=== PATIENT | female | born 1955 | race Caucasian/White ===

== ENCOUNTER 2016-10-20 00:50 | Inpatient (IN) | payer MEDICAID ==
--- NOTE | 2016-10-20 00:59 | EDPHY ---
H & P Stated Complaint: N,V ATE SAGEBRUSH, COFFEE ENEMA, ECT TO TREAT LYMES HPI/ROS: HPI CHIEF COMPLAINT: Nausea, vomiting after eating sagebrush HISTORY OF PRESENT ILLNESS: This patient very pleasant 60-year-old female, she presents emergency room with nausea and vomiting x2 episodes nonbilious nonbloody, she states around 9:00 p.m. yesterday she ate sagebrush while on a hike. She thought it was similar to stella. She states she Boiled it, rather large amount of it. Since then she has had onset of nausea. Around 2:00 p.m. today she developed vomiting. 2 different episodes. She has not had any significant pain denies any fever. Denies chest pain or shortness of breath. She does tell me she feels nausea. Since then she tells me she did 2 coffee enemas, drank activated charcoal and a liver rescue homeopathic medication as she read online that stage brushing can cause her liver toxicity. She denies any abdominal pain. She states since taking about other. She has had ongoing nausea. 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 Exam Constitutional appears well nontoxic, triage nursing summary reviewed, vital signs reviewed, awake/alert. Eyes normal conjunctivae and sclera, EOMI, PERRLA. HENT normal inspection, atraumatic, moist mucus membranes, no epistaxis, neck supple/ no meningismus, no raccoon eyes. Respiratory clear to auscultation bilaterally, normal breath sounds, no respiratory distress, no wheezing. Cardiovascular rate normal, regular rhythm, no murmur, no edema, distal pulses normal. Gastrointestinal soft, non-tender, no rebound, no guarding, normal bowel sounds, no distension, no pulsatile mass. Genitourinary no CVA tenderness. Musculoskeletal no midline vertebral tenderness, full range of motion, no calf swelling, no tenderness of extremities, no meningismus, good pulses, neurovascularly intact. Skin pink, warm, & dry, no rash, skin atraumatic. Neurologic awake, alert and oriented x 3, AAOx3, moves all 4 extremities equally, motor intact, sensory intact, CN II-XII intact, normal cerebellar, normal vision, normal speech. Psychiatric normal mood/affect. Heme/Lymph/Immune no lymphadenopathy. Differential Diagnosis: Includes but is not limited to in a particular order, dehydration, electrolyte disturbance, acute nausea vomiting from sagebrush ingestion. Medical Decision Making: Plan for this patient IV fluid bolus 1 L normal saline , IV Zofran for nausea, check liver enzymes and basic blood work. Re-evaluate. Re-evaluation: 0224AM: Patient is resting comfortably at this time. Is noted sodium is low critically 118. Due to his low sodium she will need to be admitted for further evaluation of hyponatremia. I have consult the hospitalist. Dr. Barrientos who agrees to admit. Updated patient. She agrees for admission. Source: Patient - Personal History Current Tetanus/Diphtheria Vaccine: Unsure Current Tetanus Diphtheria and Acellular Pertussis (TDAP): Unsure - Medical/Surgical History Hx Asthma: No Hx Chronic Respiratory Disease: No Hx Diabetes: No Hx Cardiac Disease: No Hx Renal Disease: No Hx Cirrhosis: No Hx Alcoholism: No Hx HIV/AIDS: No Hx Splenectomy or Spleen Trauma: No Other PMH: LYMES , OSTEO, PARATHYROID REMOVED - Social History Smoking Status: Light smoker Constitutional: Initial Vital Signs Temperature (C) 36.9 C 10/20/16 00:53 Heart Rate 79 10/20/16 00:53 Respiratory Rate 18 10/20/16 00:53 Blood Pressure 170/68 H 10/20/16 00:53 O2 Sat (%) 96 10/20/16 00:53 O2 Delivery Mode Room Air Allergies/Adverse Reactions: Sulfa (Sulfonamide Antibiotics) Allergy (Verified 10/20/16 00:57) Home Medications: Medication Instructions Recorded NK [No Known Home Meds] 10/20/16 Medical Decision Making - Data Points Laboratory Results: Laboratory Results 10/20/16 01:20 10/20/16 01:20 10/20/16 10/20/16 01:20 01:20 WBC 13.35 10^3/uL H 10^3/uL (3.80-9.50) RBC 4.02 10^6/uL L 10^6/uL (4.18-5.33) Hgb 12.5 g/dL L g/dL (12.6-16.3) Hct 34.8 % L % (38.0-47.0) MCV 86.6 fL fL (81.5-99.8) MCH 31.1 pg pg (27.9-34.1) MCHC 35.9 g/dL g/dL (32.4-36.7) RDW 11.3 % L % (11.5-15.2) Plt Count 255 10^3/uL 10^3/uL (150-400) MPV 9.7 fL fL (8.7-11.7) Neut % (Auto) 78.6 % H % (39.3-74.2) Lymph % (Auto) 14.2 % L % (15.0-45.0) [place] % (Auto) 6.7 % % (4.5-13.0) Eos % (Auto) 0.1 % L % (0.6-7.6) Baso % (Auto) 0.2 % L % (0.3-1.7) Nucleat RBC Rel Count 0.0 % % (0.0-0.2) Absolute Neuts (auto) 10.49 10^3/uL H 10^3/uL (1.70-6.50) Absolute Lymphs (auto) 1.89 10^3/uL 10^3/uL (1.00-3.00) Absolute Monos (auto) 0.89 10^3/uL H 10^3/uL (0.30-0.80) Absolute Eos (auto) 0.02 10^3/uL L 10^3/uL (0.03-0.40) Absolute Basos (auto) 0.03 10^3/uL 10^3/uL (0.02-0.10) Absolute Nucleated RBC 0.00 10^3/uL 10^3/uL (0-0.01) Immature Gran % 0.2 % % (0.0-1.1) Immature Gran # 0.03 10^3/uL 10^3/uL (0.00-0.10) Sodium 118 mEq/L L* mEq/L (134-144) Potassium 3.4 mEq/L L mEq/L (3.5-5.2) Chloride 89 mEq/L L mEq/L (97-110) Carbon Dioxide 19 mEq/l L mEq/l (22-31) Anion Gap 10 mEq/L mEq/L (8-16) BUN 12 mg/dL mg/dL (7-23) Creatinine 0.5 mg/dL L mg/dL (0.6-1.0) Estimated GFR > 60 Glucose 126 mg/dL H mg/dL (70-100) Calcium 9.0 mg/dL mg/dL (8.5-10.4) Total Bilirubin 1.1 mg/dL mg/dL (0.1-1.4) Conjugated Bilirubin 0.3 mg/dL mg/dL (0.0-0.5) Unconjugated Bilirubin 0.8 mg/dL mg/dL (0.0-1.1) AST 22 IU/L IU/L (14-46) ALT 33 IU/L IU/L (9-52) Alkaline Phosphatase 70 IU/L IU/L (38-126) Total Protein 6.6 g/dL g/dL (6.3-8.2) Albumin 3.8 g/dL g/dL (3.5-5.0) Lipase 48.0 IU/L IU/L (23-300) Medications Given: Discontinued Medications Sodium Chloride (Ns) 1,000 mls @ 0 mls/hr IV ONCE ONE; Wide Open PRN Reason: Protocol Stop: 10/20/16 01:10 Last Admin: 10/20/16 01:20 Dose: 1,000 mls Ondansetron HCl (Zofran) 4 mg IVP EDNOW ONE Stop: 10/20/16 01:10 Last Admin: 10/20/16 01:24 Dose: Not Given Departure - Departure Disposition: [facility] Inpatient Acute Clinical Impression: Hyponatremia Condition: Fair Referrals: FLORENCIA CUELLAR [Other] - As per Instructions
[2016-10-20] MEDS ORDERED: NS 1,000 ML IV ONE (01:09)
[2016-10-20] MEDS ORDERED: ONDANSETRON 4 MG/2 ML VIAL IVP ONE (01:09)
[2016-10-20 01:34] LABS: % IMMATURE GRANULYOCYTES 0.2 % (0.0-1.1); ABSOLUTE IMMATURE GRANULOCYTES 0.03 10^3/uL (0.00-0.10); ADD DIFF? NO; ADD MORPH? NO; ADD SCAN? NO; ATYPICAL LYMPHOCYTE FLAG 10 (0-99); FRAGMENT RBC FLAG 0 (0-99); HEMATOCRIT 34.8 % (38.0-47.0); HEMOGLOBIN 12.5 g/dL (12.6-16.3); LEFT SHIFT FLG 10 (0-99); LIPEMIA HEMOLYSIS FLAG 90 (0-99); MEAN CELL HEMOGLOBIN 31.1 pg (27.9-34.1); MEAN CELL HEMOGLOBIN CONCENTR. 35.9 g/dL (32.4-36.7); MEAN CELL VOLUME 86.6 fL (81.5-99.8); MEAN PLATELET VOLUME 9.7 fL (8.7-11.7); PLATELET CLUMPS FLAG 0 (0-99); PLATELET COUNT 255 10^3/uL (150-400); RED BLOOD CELL COUNT 4.02 10^6/uL (4.18-5.33); RED CELL DISTRIBUTION WIDTH 11.3 % (11.5-15.2)
[2016-10-20 01:53] LABS: ALANINE AMINOTRANSFERASE 33 IU/L (9-52); ALBUMIN 3.8 g/dL (3.5-5.0); ALKALINE PHOSPHATASE 70 IU/L (38-126); ANION GAP 10 mEq/L (8-16); ASPARTATE AMINOTRANSFERASE 22 IU/L (14-46); BILIRUBIN,TOTAL 1.1 mg/dL (0.1-1.4); BILIRUBIN-CONJUGATED 0.3 mg/dL (0.0-0.5); BILIRUBIN-UNCONJUGATED 0.8 mg/dL (0.0-1.1); CARBON DIOXIDE 19 mEq/l (22-31); CHLORIDE 89 mEq/L (97-110); CREATININE 0.5 mg/dL (0.6-1.0); GLOMERULAR FILTRATION RATE > 60; GLUCOSE 126 mg/dL (70-100); POTASSIUM 3.4 mEq/L (3.5-5.2); TOTAL PROTEIN 6.6 g/dL (6.3-8.2)
[2016-10-20 01:56] LABS: SODIUM 118 mEq/L (134-144)
[2016-10-20] MEDS ORDERED: ONDANSETRON 4 MG/2 ML VIAL IVP PRN (04:08)
[2016-10-20] MEDS ORDERED: ONDANSETRON DISINTEGRATING 4 MG TAB PO PRN (04:08)
[2016-10-20] MEDS ORDERED: ACETAMINOPHEN 325 MG TAB PO PRN (04:08)
[2016-10-20 04:37] LABS: COLOR COLORLESS; LEUKOCYTE ESTERASE,URINE 2+ (NEGATIVE); NITRITE,URINE NEGATIVE (NEGATIVE)
[2016-10-20 05:15] LABS: % IMMATURE GRANULYOCYTES 0.4 % (0.0-1.1); ABSOLUTE IMMATURE GRANULOCYTES 0.04 10^3/uL (0.00-0.10); ADD DIFF? NO; ADD MORPH? NO; ADD SCAN? NO; ATYPICAL LYMPHOCYTE FLAG 10 (0-99); FRAGMENT RBC FLAG 0 (0-99); HEMATOCRIT 32.3 % (38.0-47.0); HEMOGLOBIN 11.5 g/dL (12.6-16.3); LEFT SHIFT FLG 0 (0-99); LIPEMIA HEMOLYSIS FLAG 90 (0-99); MEAN CELL HEMOGLOBIN 30.9 pg (27.9-34.1); MEAN CELL HEMOGLOBIN CONCENTR. 35.6 g/dL (32.4-36.7); MEAN CELL VOLUME 86.8 fL (81.5-99.8); MEAN PLATELET VOLUME 9.4 fL (8.7-11.7); PLATELET CLUMPS FLAG 0 (0-99); PLATELET COUNT 214 10^3/uL (150-400); RED BLOOD CELL COUNT 3.72 10^6/uL (4.18-5.33); RED CELL DISTRIBUTION WIDTH 11.5 % (11.5-15.2)
[2016-10-20 05:24] LABS: APTT 30.9 SEC (23.0-38.0); INR 1.13 (0.83-1.16); PROTIME(PATIENT) 14.4 SEC (12.0-15.0)
[2016-10-20 05:34] LABS: ALANINE AMINOTRANSFERASE 29 IU/L (9-52); ALBUMIN 3.1 g/dL (3.5-5.0); ALKALINE PHOSPHATASE 58 IU/L (38-126); ANION GAP 6 mEq/L (8-16); ASPARTATE AMINOTRANSFERASE 20 IU/L (14-46); BILIRUBIN,TOTAL 0.8 mg/dL (0.1-1.4); CALCIUM 8.4 mg/dL (8.5-10.4); CARBON DIOXIDE 22 mEq/l (22-31); CHLORIDE 98 mEq/L (97-110); CREATININE 0.5 mg/dL (0.6-1.0); GLOMERULAR FILTRATION RATE > 60; GLUCOSE 106 mg/dL (70-100); MAGNESIUM 1.8 mg/dL (1.6-2.3); POTASSIUM 3.5 mEq/L (3.5-5.2); SODIUM 126 mEq/L (134-144); TOTAL PROTEIN 5.7 g/dL (6.3-8.2)
--- NOTE | 2016-10-20 05:46 | PDGENHP ---
History and Physical - Chief Complaint nausea, vomiting - History of Present Illness Patient is a 60 year old female with no significant pmh who presents to the ED with compliant of nausea, vomiting. Patient states she has spent the past 8-9 days hiking in [place], yesterday went on a moderately strenuous hike, may have not been eating/drinking adequately during this time. For dinner, she decided to eat boiled sagebrush, a moderate amount, at around 9pm. She denies any immediate symptoms, woke up this AM and drove back to her home in [place], arriving here at about 2pm. Shortly after arrival home, she began experiencing waves of nausea. She then gave herself a number of homeopathic remedies for nausea, including a coffee enema. These did not help her nausea, and she reports 2 episodes of vomiting over the course of the evening. She also reported feeling a generalized weakness, mild headache and feeling unwell, so she decided to come to the ED for further evaluation. Of note, patient states about 2 weeks ago she began experiencing symptoms of urinary urgency, frequency and burning. She felt she likely had a UTI and began several homeopathic remedies for treatment of this. She reports that her symptoms have improved, denies any fevers, chills, dysuria currently. On arrival to the ED, patient was afebrile and hemodynamically stable. Labs were significant for mild leukocytosis and moderately severe hyponatremia (118) . She was given IV fluid hydration and admitted for further management. History Information - Allergies/Home Medication List Allergies/Adverse Reactions: Sulfa (Sulfonamide Antibiotics) Allergy (Verified 10/20/16 00:57) Home Medications: NK [No Known Home Meds] 10/20/16 [Last Taken Unknown] I have personally reviewed and updated: family history, medical history, social history, surgical history - Past Medical History Additional medical history: ? chronic lyme disease. osteoporosis - Surgical History Additional surgical history: partial parathyroidectomy - Family History Positive for: CAD (F [place] at 74) - Social History Smoking Status: Former smoker (light smoker x 15 years, quit 5 years ago) Alcohol Use: Rarely Drug Use: None Additional social history: Patient moved from [place] to [place] about 1 year ago. Review of Systems ROS: 10pt was reviewed & negative except for what was stated in HPI & below Physical Exam Temp Pulse Resp BP Pulse Ox 36.6 C 66 16 123/75 H 96 10/20/16 03:23 10/20/16 03:23 10/20/16 03:23 10/20/16 03:23 10/20/16 03:23 Constitutional: no apparent distress, appears nourished, not in pain Eyes: PERRL, anicteric sclera, EOMI Ears, Nose, Mouth, Throat: hearing normal, ears appear normal, no oral mucosal ulcers, dry mucous membranes Cardiovascular: regular rate and rhythym, no murmur, rub, or gallop, pulses symmetric bilaterally, No JVD, No edema Peripheral Pulses: 2+: dorsalis-pedis (R), dorsalis-pedis (L) Respiratory: no respiratory distress, no rales or rhonchi, clear to auscultation Gastrointestinal: normoactive bowel sounds, soft, non-tender abdomen, no palpable masses, No guarding, No rebound, No distension Genitourinary: no bladder fullness, no bladder tenderness Skin: warm, normal color, no rashes or abrasions, no fluctuance, no induration, No mottled Musculoskeletal: full muscle strength, no muscle tenderness, normal joint ROM, no joint effusions Neurologic: AAOx3, sensation intact bilaterally, CN II-XII Intact, No weakness, No numbness, No facial droop Psychiatric: interacting appropriately, not anxious, not encephalopathic, thought process linear Lab Data & Imaging Review 10/20/16 04:59 10/20/16 04:59 WBC 11.36 10^3/uL (3.80-9.50) H 10/20/16 04:59 RBC 3.72 10^6/uL (4.18-5.33) L 10/20/16 04:59 Hgb 11.5 g/dL (12.6-16.3) L 10/20/16 04:59 Hct 32.3 % (38.0-47.0) L 10/20/16 04:59 MCV 86.8 fL (81.5-99.8) 10/20/16 04:59 MCH 30.9 pg (27.9-34.1) 10/20/16 04:59 MCHC 35.6 g/dL (32.4-36.7) 10/20/16 04:59 RDW 11.5 % (11.5-15.2) 10/20/16 04:59 Plt Count 214 10^3/uL (150-400) 10/20/16 04:59 MPV 9.4 fL (8.7-11.7) 10/20/16 04:59 Neut % (Auto) 74.0 % (39.3-74.2) 10/20/16 04:59 Lymph % (Auto) 18.2 % (15.0-45.0) 10/20/16 04:59 [place] % (Auto) 6.6 % (4.5-13.0) 10/20/16 04:59 Eos % (Auto) 0.6 % (0.6-7.6) 10/20/16 04:59 Baso % (Auto) 0.2 % (0.3-1.7) L 10/20/16 04:59 Nucleat RBC Rel Count 0.0 % (0.0-0.2) 10/20/16 04:59 Absolute Neuts (auto) 8.41 10^3/uL (1.70-6.50) H 10/20/16 04:59 Absolute Lymphs (auto) 2.07 10^3/uL (1.00-3.00) 10/20/16 04:59 Absolute Monos (auto) 0.75 10^3/uL (0.30-0.80) 10/20/16 04:59 Absolute Eos (auto) 0.07 10^3/uL (0.03-0.40) 10/20/16 04:59 Absolute Basos (auto) 0.02 10^3/uL (0.02-0.10) 10/20/16 04:59 Absolute Nucleated RBC 0.00 10^3/uL (0-0.01) 10/20/16 04:59 Immature Gran % 0.4 % (0.0-1.1) 10/20/16 04:59 Immature Gran # 0.04 10^3/uL (0.00-0.10) 10/20/16 04:59 PT 14.4 SEC (12.0-15.0) 10/20/16 04:59 INR 1.13 (0.83-1.16) 10/20/16 04:59 APTT 30.9 SEC (23.0-38.0) 10/20/16 04:59 Sodium 126 mEq/L (134-144) L 10/20/16 04:59 Potassium 3.5 mEq/L (3.5-5.2) 10/20/16 04:59 Chloride 98 mEq/L (97-110) 10/20/16 04:59 Carbon Dioxide 22 mEq/l (22-31) 10/20/16 04:59 Anion Gap 6 mEq/L (8-16) L 10/20/16 04:59 BUN 8 mg/dL (7-23) 10/20/16 04:59 Creatinine 0.5 mg/dL (0.6-1.0) L 10/20/16 04:59 Estimated GFR > 60 10/20/16 04:59 Glucose 106 mg/dL (70-100) H 10/20/16 04:59 Calcium 8.4 mg/dL (8.5-10.4) L 10/20/16 04:59 Phosphorus 3.1 mg/dL (2.5-4.5) 10/20/16 04:59 Magnesium 1.8 mg/dL (1.6-2.3) 10/20/16 04:59 Total Bilirubin 0.8 mg/dL (0.1-1.4) 10/20/16 04:59 Conjugated Bilirubin 0.3 mg/dL (0.0-0.5) 10/20/16 01:20 Unconjugated Bilirubin 0.8 mg/dL (0.0-1.1) 10/20/16 01:20 AST 20 IU/L (14-46) 10/20/16 04:59 ALT 29 IU/L (9-52) 10/20/16 04:59 Alkaline Phosphatase 58 IU/L (38-126) 10/20/16 04:59 Total Protein 5.7 g/dL (6.3-8.2) L 10/20/16 04:59 Albumin 3.1 g/dL (3.5-5.0) L 10/20/16 04:59 Lipase 48.0 IU/L (23-300) 10/20/16 01:20 Urine Color COLORLESS 10/20/16 04:15 Urine Appearance CLEAR 10/20/16 04:15 Urine pH 7.0 (5.0-7.5) 10/20/16 04:15 Ur Specific [place] 1.001 (1.002-1.030) L 10/20/16 04:15 Urine Protein NEGATIVE (NEGATIVE) 10/20/16 04:15 Urine Ketones TRACE (NEGATIVE) H 10/20/16 04:15 Urine Blood NEGATIVE (NEGATIVE) 10/20/16 04:15 Urine Nitrate NEGATIVE (NEGATIVE) 10/20/16 04:15 Urine Bilirubin NEGATIVE (NEGATIVE) 10/20/16 04:15 Urine Urobilinogen NEGATIVE EU (0.2-1.0) 10/20/16 04:15 Ur Leukocyte Esterase 2+ (NEGATIVE) H 10/20/16 04:15 Urine RBC 5-10 /hpf (0-3) H 10/20/16 04:15 Urine WBC 10-15 /hpf (0-3) H 10/20/16 04:15 Ur Epithelial Cells NONE SEEN /lpf (NONE-1+) 10/20/16 04:15 Urine Osmolality 150 mosmo/kg (300-900) L 10/20/16 02:30 Ur Random Creatinine 20.8 mg/dL 10/20/16 02:30 Ur Random Sodium 15 mEq/L (30-90) L 10/20/16 02:30 Urine Glucose NEGATIVE (NEGATIVE) 10/20/16 04:15 Assessment & Plan Assessment: Patient is a 60 year old female with no significant pmh who presents to the ED with nausea, vomiting and generalized weakness after eating boiled sagebrush. ED evaluation reveals acute hyponatremia. Plan: # hyponatremia Likely acute, and given low urine osm, urine Na, suspect hypovolemia hyponatremia. She has received 1L NS in ED. Will need to slowly correct Na over next 24-48 hours. Goal Na over next 24 hours would be 126-128. Will monitor Na [id number], monitor strict I/Os. # nausea/vomiting May be related to sagebush ingestion vs acute hyponatremia. LFTs and lipase are within normal limits. Will provide symptom control as needed, replace electrolytes as needed. # leukocytosis Suspect this is reactive related to acute dehydration. Patient does report urinary symptoms about 2 weeks ago that have since resolved. No symptoms of acute infection currently, will check UA and monitor CBC. # dispo: admit to inpatient service for likely > 2 [place] stay for management of moderately severe hyponatremia # gen: regular diet DVT ppx; lovenox Full code
[2016-10-20] MEDS ORDERED: D5W 1/2 NS 1,000 ML IV SCH (06:15)
[2016-10-20 07:32] VITALS: BP 108/59; PULSE 65; RESP 12; TEMP 98; O2SAT 94
[2016-10-20] MEDS ORDERED: ENOXAPARIN 40 MG/0.4 ML SYR SC SCH (09:00)
--- NOTE | 2016-10-20 22:04 | GDS ---
[f rep st] DISCHARGE SUMMARY DISCHARGE DIAGNOSIS: Hyponatremia secondary to nausea, vomiting but also may be due to free water mahesh singh. HISTORY: This is a 60-year-old female, who was camping in [place] and 2 days ago ingested a stella br ush tea. She came back the following day, and yesterday afternoon had nausea and vomiting. She the n began taking some herbal remedies for that and had 2 coffee enemas. She presented with persistent nausea and vomiting and sodium of 118. HOSPITAL COURSE: The patient had a low urine sodium and low urine osmoles. Specific gravity in her urine was also quite low indicating that hyponatremia was probably due to increased free water inta ke rather than dehydration. We strongly suspected that this was hyperacute. She was just given a l iter of saline and 500 mL of normal saline and over the 8 hours her sodium went up to 133. I did have a significant discussion with the patient of the risk of osmolar demyelination syndrome i n this case. She is below the 120 molly but only barely and we do think that this is acute and did n ot last longer than a day. She was very much wanting to go home at that point. We did offer her th e option of staying in the hospital and getting DDAVP and bringing her sodium back down and to be br ought up but she does not want to do that. She understands a very slight risk of osmolar demyelinat ion syndrome. She is wanting to go home and will be discharged. /[id number]/MODL
== END 2016-10-20 12:13 | disposition home or self-care (01) | DRG 641 ==
LOC: F3E 03:20
PROVIDERS: ADMIT Internal Medicine; ATTEND Internal Medicine
DX: E87.1 Hypo-osmolality and hyponatremia (principal); R11.2 Nausea with vomiting, unspecified; T62.2X1A Toxic effect of other ingested (parts of) plant(s), accidental (unintentional), initial encounter; D72.829 Elevated white blood cell count, unspecified; A69.20 Lyme disease, unspecified; M81.0 Age-related osteoporosis without current pathological fracture; Z87.891 Personal history of nicotine dependence; Z88.2 Allergy status to sulfonamides
CPT/HCPCS: J1650; J2405